=== PATIENT | male | born 1965 ===

== ENCOUNTER 2017-01-29 14:34 | Observation (INO) | payer OTHER ==
[2017-01-29] VITALS (8 sets, daily range): BP systolic 96–113; BP diastolic 65–81
[~2017-01-29 14:34] MED LIST: CITALOPRAM HYDR40 MG PO; DICLOFENAC SODI50 MG PO; GABAPENTIN300 MG PO; MS CONTIN15 MG PO; SIMVASTATIN40 MG PO
--- NOTE | 2017-01-29 16:57 | ED CLINICAL REPORT ---
Clinical Report - Physicians/Mid Levels [facility] [address] [place] [address] 01/29/2017 14:35 Patient: ANGELICA TATE Arrived- By private vehicle. Historian- patient. HISTORY OF PRESENT ILLNESS Chief Complaint: ABDOMINAL PAIN. At its maximum, severity described as moderate. When seen in the E.D., severity described as moderate. Modifying factors- worsened by movement. Not relieved by anything. It is described as sharp and migrating. No radiation. It is described as located in the right lower quadrant. This started past few days and is still present and worsening. It was gradual in onset and has been constant but is not gone now. The patient has had nausea. No loss of appetite or vomiting. He has had diarrhea (mild. described as nbnb). No additional abdominal pain. No recent travel. Similar symptoms previously: None. Recent medical care: Not recently seen/assessed. REVIEW OF SYSTEMS No constipation, black stools, hematemesis, bloody stools or fever. No chest pain, difficulty breathing or skin rash. reports no testicular pain, swelling, or penile discharge. All systems otherwise negative, except as recorded above. PAST HISTORY See nurses notes. Medications: Morphine Sulfate ER Beads Oral (Capsule Extended Release 24 Hour 30 mg) 1 capsule, 2xdat. OxyCODONE HCl Oral (Tablet 5 mg) 1 tablet, 2x a day. Baclofen 10mg, 3x a day. Citalopram Hydrobromide Oral (Tablet 40 mg) 1 tablet, 1xday. Morphine Sulfate ER Beads Oral. Gabapentin Oral 900mg, 3x a day. Allergies: Lescol. SOCIAL HISTORY Smoker- current status unknown. Alcohol use. No drug use. [place] recent travel[place] AD[place]AL NOTES The nursing notes have been reviewed. PHYSICAL EXAM Vital Signs: 01/29/2017 14:43 BP: 127/79. HR: 74. RR: 18. O2 saturation: 92%. Temp: 98.1 F. Pain level now: 5/10. Blood pressure normal. Oxygen saturation normal. Appearance: Alert. Oriented X3. No acute distress. Eyes: Pupils equal, round and reactive to light. Eyes normal inspection. CVS: Normal heart rate and rhythm. Heart sounds normal. Pulses normal. Respiratory: No respiratory distress. Breath sounds normal. Chest nontender. Abdomen: Soft. (tenderness at Mcburney's. Negative Jaylan's. No rebound or guarding.). : (declined by patient). Skin: Skin warm and dry. Normal skin color. No rash. Normal skin turgor. Extremities: Extremities exhibit normal ROM. No lower extremity edema. LABS, X-RAYS, AND EKG Abdominal CT: There is evidence of appendicitis. No mass. No free fluid. No bony lesion. no free air. uncomplicated acute appendicitis. Study type: abdomen and pelvis. Abdominal CT performed with IV contrast. The study was independently viewed by me, interpreted by the radiologist and discussed with the radiologist. Laboratory Tests: UA-Culture if indicated: (CHANDLER: 01/29/2017 15:20) ( [facility] 01/29/2017 16:30) IP Test Result Flag Units (Reference) URINE COLOR YELLOW URINE APPEARANCE CLEAR URINE GLUCOSE NEGATIVE (NEGATIVE) URINE BILIRUBIN NEGATIVE (NEGATIVE) URINE KETONE NEGATIVE (NEGATIVE) URINE SPECIFIC GRAVITY >= 1.030 (1.010-1.030) URINE PH 5.5 (5.0-8.0) URINE PROTEIN NEGATIVE (NEGATIVE) URINE UROBILINOGEN 0.2 EU/dL (0.2-1.0) URINE NITRITE NEGATIVE (NEGATIVE) URINE BLOOD NEGATIVE (NEGATIVE) URINE LEUK ESTERASE NEGATIVE (NEGATIVE) CBC w Diff: (CHANDLER: 01/29/2017 15:50) ( [facility] 01/29/2017 16:27) Final results Test Result Flag Units (Reference) WHITE BLOOD COUNT 9.6 K/uL (4.5-11.5) RED BLOOD COUNT 4.43 L M/uL (4.50-5.90) HEMOGLOBIN 14.1 gm/dL (13.5-17.5) HEMATOCRIT 41.5 % (41.0-53.0) MEAN CELL VOLUME 94 fL (80-100) MEAN CORPUSCULAR HGB 32 pg (26-34) MEAN CORPUSCULAR HGB CONC 34 g/dL (31-37) RED CELL DISTRIBUTION WIDTH 13.7 % (11.6-14.8) PLATELET COUNT 210 K/uL (150-400) NEUTROPHIL % 54.7 % (50-75) LYMPH % 35.4 % (25-40) MONO % 7.4 % (3-14) EOSINOPHIL % 2.1 % (0-4) BASOPHIL % 0.4 % (0-2) PT with INR: (CHANDLER: 01/29/2017 15:50) ( [facility] 01/29/2017 16:29) Final results Test Result Flag Units (Reference) INR 0.8 (0.8-1.2) Low Intensity Therapy: INR 1.5-2.0 PT range 18.5-23.1Mod.Intensity Therapy: INR 2.0-3.0 PT range 23.1-31.5High Intensity Therapy: INR 2.5-3.5 PT range 27.4-35.5High Intensity Therapy 2: INR 3.0-4.0 PT range 31.5-39.3 CMP: (CHANDLER: 01/29/2017 15:50) ( [facility] 01/29/2017 16:20) Final results Test Result Flag Units (Reference) GLUCOSE 100 mg/dL (70-110) BUN 13 mg/dL (7-18) CREATININE 1.1 mg/dL (0.6-1.3) Estimated GFR >60 mL/min Estimated GFR- >60 mL/min Note: Persistent reduction over 3 months in eGFR<60 mL/min/1.73 m2 defines CKD. Patients with eGFR values>=60 mL/min/1.73 m2 may also have CKD if evidence ofpersistent proteinuria. Additional information may be foundat www.kidney.org. SODIUM 140 mmol/L (136-145) POTASSIUM 4.1 mmol/L (3.5-5.1) CHLORIDE 101 mmol/L (98-107) CARBON DIOXIDE 31 mmol/L (21-32) CALCIUM 8.9 mg/dL (8.5-10.1) TOTAL PROTEIN 7.8 g/dL (6.4-8.2) ALBUMIN 3.9 g/dL (3.3-5.0) BILIRUBIN, TOTAL 0.3 mg/dL (0.0-1.0) ALKALINE PHOSPHATASE 76 U/L (46-116) AST (SGOT) 14 L U/L (15-37) ALT (SGPT) 23 U/L (12-78) LIPASE 106 U/L (73-393) . PROGRESS AND PROCEDURES Critical care performed (35 minutes). Time is exclusive of separately billable procedures. Time includes: direct patient care, patient reassessment, coordination of patient care, review of patient's medical records, medical consultation and documentation of patient care. Consult obtained from surgery. dr. Hdez. Case discussed. Disposition: Discharged. Condition: good. CLINICAL IMPRESSION acute appendicitis liver cyst, incidental finding. (Electronically signed by Clifton Heller Dr. 01/30/2017 21:35)
--- NOTE | 2017-01-29 16:57 | ED CLINICAL REPORT ---
Clinical Report - Physicians/Mid Levels [facility] [address] [place] [address] 01/29/2017 14:35 Patient: ANGELICA TATE Arrived- By private vehicle. Historian- patient. HISTORY OF PRESENT ILLNESS Chief Complaint: ABDOMINAL PAIN. At its maximum, severity described as moderate. When seen in the E.D., severity described as moderate. Modifying factors- worsened by movement. Not relieved by anything. It is described as sharp and migrating. No radiation. It is described as located in the right lower quadrant. This started past few days and is still present and worsening. It was gradual in onset and has been constant but is not gone now. The patient has had nausea. No loss of appetite or vomiting. He has had diarrhea (mild. described as nbnb). No additional abdominal pain. No recent travel. Similar symptoms previously: None. Recent medical care: Not recently seen/assessed. REVIEW OF SYSTEMS No constipation, black stools, hematemesis, bloody stools or fever. No chest pain, difficulty breathing or skin rash. reports no testicular pain, swelling, or penile discharge. All systems otherwise negative, except as recorded above. PAST HISTORY See nurses notes. Medications: Morphine Sulfate ER Beads Oral (Capsule Extended Release 24 Hour 30 mg) 1 capsule, 2xdat. OxyCODONE HCl Oral (Tablet 5 mg) 1 tablet, 2x a day. Baclofen 10mg, 3x a day. Citalopram Hydrobromide Oral (Tablet 40 mg) 1 tablet, 1xday. Morphine Sulfate ER Beads Oral. Gabapentin Oral 900mg, 3x a day. Allergies: Lescol. SOCIAL HISTORY Smoker- current status unknown. Alcohol use. No drug use. No recent travel. Residence: moving between [place] and [place]. ADDITIONAL NOTES The nursing notes have been reviewed. PHYSICAL EXAM Vital Signs: 01/29/2017 14:43 BP: 127/79. HR: 74. RR: 18. O2 saturation: 92%. Temp: 98.1 F. Pain level now: 5/10. Blood pressure normal. Oxygen saturation normal. Appearance: Alert. Oriented X3. No acute distress. Eyes: Pupils equal, round and reactive to light. Eyes normal inspection. CVS: Normal heart rate and rhythm. Heart sounds normal. Pulses normal. Respiratory: No respiratory distress. Breath sounds normal. Chest nontender. Abdomen: Soft. (tenderness at Mcburney's. Negative Jaylan's. No rebound or guarding.). : (declined by patient). Skin: Skin warm and dry. Normal skin color. No rash. Normal skin turgor. Extremities: Extremities exhibit normal ROM. No lower extremity edema. LABS, X-RAYS, AND EKG Abdominal CT: There is evidence of appendicitis. No mass. No free fluid. No bony lesion. no free air. uncomplicated acute appendicitis. Study type: abdomen and pelvis. Abdominal CT performed with IV contrast. The study was independently viewed by me, interpreted by the radiologist and discussed with the radiologist. Laboratory Tests: UA-Culture if indicated: (CHANDLER: 01/29/2017 15:20) ( [facility] 01/29/2017 16:30) IP Test Result Flag Units (Reference) URINE COLOR YELLOW URINE APPEARANCE CLEAR URINE GLUCOSE NEGATIVE (NEGATIVE) URINE BILIRUBIN NEGATIVE (NEGATIVE) URINE KETONE NEGATIVE (NEGATIVE) URINE SPECIFIC GRAVITY >= 1.030 (1.010-1.030) URINE PH 5.5 (5.0-8.0) URINE PROTEIN NEGATIVE (NEGATIVE) URINE UROBILINOGEN 0.2 EU/dL (0.2-1.0) URINE NITRITE NEGATIVE (NEGATIVE) URINE BLOOD NEGATIVE (NEGATIVE) URINE LEUK ESTERASE NEGATIVE (NEGATIVE) CBC w Diff: (CHANDLER: 01/29/2017 15:50) ( [facility] 01/29/2017 16:27) Final results Test Result Flag Units (Reference) WHITE BLOOD COUNT 9.6 K/uL (4.5-11.5) RED BLOOD COUNT 4.43 L M/uL (4.50-5.90) HEMOGLOBIN 14.1 gm/dL (13.5-17.5) HEMATOCRIT 41.5 % (41.0-53.0) MEAN CELL VOLUME 94 fL (80-100) MEAN CORPUSCULAR HGB 32 pg (26-34) MEAN CORPUSCULAR HGB CONC 34 g/dL (31-37) RED CELL DISTRIBUTION WIDTH 13.7 % (11.6-14.8) PLATELET COUNT 210 K/uL (150-400) NEUTROPHIL % 54.7 % (50-75) LYMPH % 35.4 % (25-40) MONO % 7.4 % (3-14) EOSINOPHIL % 2.1 % (0-4) BASOPHIL % 0.4 % (0-2) PT with INR: (CHANDLER: 01/29/2017 15:50) ( [facility] 01/29/2017 16:29) Final results Test Result Flag Units (Reference) INR 0.8 (0.8-1.2) Low Intensity Therapy: INR 1.5-2.0 PT range 18.5-23.1Mod.Intensity Therapy: INR 2.0-3.0 PT range 23.1-31.5High Intensity Therapy: INR 2.5-3.5 PT range 27.4-35.5High Intensity Therapy 2: INR 3.0-4.0 PT range 31.5-39.3 CMP: (CHANDLER: 01/29/2017 15:50) ( [facility] 01/29/2017 16:20) Final results Test Result Flag Units (Reference) GLUCOSE 100 mg/dL (70-110) BUN 13 mg/dL (7-18) CREATININE 1.1 mg/dL (0.6-1.3) Estimated GFR >60 mL/min Estimated GFR- >60 mL/min Note: Persistent reduction over 3 months in eGFR<60 mL/min/1.73 m2 defines CKD. Patients with eGFR values>=60 mL/min/1.73 m2 may also have CKD if evidence ofpersistent proteinuria. Additional information may be foundat [email or web address].org. SODIUM 140 mmol/L (136-145) POTASSIUM 4.1 mmol/L (3.5-5.1) CHLORIDE 101 mmol/L (98-107) CARBON DIOXIDE 31 mmol/L (21-32) CALCIUM 8.9 mg/dL (8.5-10.1) TOTAL PROTEIN 7.8 g/dL (6.4-8.2) ALBUMIN 3.9 g/dL (3.3-5.0) BILIRUBIN, TOTAL 0.3 mg/dL (0.0-1.0) ALKALINE PHOSPHATASE 76 U/L (46-116) AST (SGOT) 14 L U/L (15-37) ALT (SGPT) 23 U/L (12-78) LIPASE 106 U/L (73-393) . PROGRESS AND PROCEDURES Critical care performed (35 minutes). Time is exclusive of separately billable procedures. Time includes: direct patient care, patient reassessment, coordination of patient care, review of patient's medical records, medical consultation and documentation of patient care. Consult obtained from surgery. dr. Hdez. Case discussed. Disposition: Discharged. Condition: good. CLINICAL IMPRESSION acute appendicitis liver cyst, incidental finding. (Electronically signed by Clifton Heller Dr. 01/30/2017 21:35)
--- NOTE | 2017-01-29 16:57 | ED ORDER SUMMARY ---
..... Patient: ANGELICA TATE OrderSheet [facility] VisitID: [id number] [address] [place] [address] 51y, M Registration Date/Time: 01/29/2017 ORDER SHEET Weight: 79.3 kg (stated) Allergies: Lescol GENERAL ORDERS: CT Abd/Pel w Cont (No) (N/A) Urgent (15:38 01/29/2017 Antoni Ramirez) (Ack 15:41 Rose) (16:58 GALILEOoerner) CBC w Diff Urgent (15:38 01/29/2017 Antoni Ramirez) (Ack 15:41 Rose) (15:54 JSanders R.N.) CMP Urgent (15:38 01/29/2017 Antoni Ramirez) (Ack 15:41 Rose) (15:54 JSanders R.N.) UA-Culture if indicated Urgent (15:38 01/29/2017 Antoni Ramirez) (Ack 15:41 Rose) (15:54 JSanders R.N.) PT with INR Urgent (15:38 01/29/2017 Antoni Ramirez) (Ack 15:41 Rose) (15:54 JSanders R.N.) Lipase Urgent (15:38 01/29/2017 Antoni Ramirez) (Ack 15:41 Rose) (15:54 ELVIRAanders R.N.) Pulse oximeter (15:38 01/29/2017 Antoni Ramirez) (15:54 JSanders R.N.) MEDICATION ORDERS: IV FLUIDS: IV NS : initial bolus 1000 mL (1000 mL/hr), then none - for X1 (NOW) (15:37 01/29/2017 Antoni Ramirez) (15:55 Bhavnas R.N.) Morphine IV 4 mg (once now. may repeat every hour as needed for total of 3 doses) (15:37 01/29/2017 Antoni Ramirez) (16:14 Rip R.N.) Zofran IV 4 mg (NOW) (15:01/29/2017 Antoni Ramirez) (16:14 DBpenny R.NSo) IV Lactated Ringers : initial bolus none -, then 150 mL/hr (NOW) (17:36 01/29/2017 Antoni Ramirez) (17:43 Gisele Jimenez.NSo) ORDER SHEET NOTES: [Electronically signed by Elyssa Melgoza R.N. (18:24 01/29/2017)] [Electronically signed by Elyssa Melgoza R.N. (18:25 01/29/2017)] [Electronically signed by Clifton Heller Dr. (21:35 01/30/2017)] [Electronically locked/signed by Elyssa Melgoza R.N. (18:24 01/29/2017)]
--- NOTE | 2017-01-29 16:57 | ED NURSING NOTES ---
Clinical Report - Nurses [facility] [address] [place] [address] 01/29/2017 14:35 Patient: ANGELICA TATE TRIAGE Triage time 14:43 Jan 29 2017. Acuity: LEVEL 3. Chief Complaint: ABDOMINAL PAIN and (Mostly pain on right side of abd, started two days, been staying constant, mostly with deep breathing, twisting, stepping wrong). 14:51 01/29/17. SEPSIS SCREEN: Sepsis Screen. Negative (no infection suspected/documented). CHELA COMA SCORE: Chela Coma Scale: 15- eyes open spontaneously (4); best verbal response- oriented x 4 (5); best motor response- obeys commands (6). --14:51 Elyssa Melgoza R.N. 14:43 01/29/17. BP: 127/79 (regular adult cuff) taken on the left arm, while lying. HR: 74. RR: 18 (regular). O2 saturation: 92% on room air. Temp: 98.1 F (oral). Pain level now: 5/10. --14:51 Elyssa Melgoza R.N. 14:59 01/29/17. --14:59 Elyssa Melgoza R.N. Triage time 17:21 Jan 29 2017. --18:24 Elyssa Melgoza R.N. Weight: 79.3 kg stated. Height/Length: 69 inches Per Patient. BMI: 25.8. --14:44 Elyssa Melgoza R.N. Medications Gabapentin Oral 900mg, 3x a day. --14:56 Elyssa Melgoza R.N. Citalopram Hydrobromide Oral (Tablet 40 mg) 1 tablet, 1xday. Morphine Sulfate ER Beads Oral. --14:57 Elyssa Melgoza R.N. Baclofen 10mg, 3x a day. --14:57 Elyssa Melgoza R.N. OxyCODONE HCl Oral (Tablet 5 mg) 1 tablet, 2x a day. --14:58 Elyssa Melgoza R.N. Morphine Sulfate ER Beads Oral (Capsule Extended Release 24 Hour 30 mg) 1 capsule, 2xdat. --14:59 Elyssa Melgoza R.N. Allergies Lescol. --14:46 Elyssa Melgoza R.N. History Arrived by private vehicle. Historian: patient. Accompanied by family. ( [place] Onset. (2 days ago). He has had moderate, sharp, dull abdominal pain. The pain is described as located in the RLQ. Last oral intake by patient was breakfast. 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 PAST MEDICAL HX: Immunizations: up-to-date. SOCIAL HX: Heavy tobacco smoker (cigarette)- 1-2 packs per day. Regular alcohol use; consumes beer. Patient smells of ETOH in the emergency department. No infectious disease exposure. No known contact with a sick individual. ABUSE ASSESSMENT: No report of abuse. --14:51 Elyssa Melgoza R.N. PROBLEMS: Hypercholesterolemia. Arthritis. Back Pain. --14:47 Elyssa Melgoza R.N. ADDITIONAL SURGERIES: Back Surgery. Spinal stimulator. --14:47 Elyssa Melgoza R.N. Interventions ID band on patient. To treatment room. --14:51 Elyssa Melgoza R.N. PHYSICAL ASSESSMENT 14:52 01/29/17. Ambulatory to room. GENERAL / NEURO / PSYCH: Oriented X 4. Appears in pain. HEENT: Mucous membranes are pink. RESPIRATORY: Breath sounds within normal limits. CVS: Capillary refill less than 2 seconds. GI / : Abdomen soft. Rebound tenderness in the right lower quadrant. Guarding present. No nausea noted. No emesis noted. Stool color normal. SKIN: Skin is warm. --14:52 Elyssa Melgoza R.N. 14:52 01/29/17. Patient gowned. --14:52 Elyssa Melgoza R.N. NURSING PROGRESS NOTES 14:52 01/29/17. The plan of care for this patient has been created. Monitoring of patient in place. Patient gowned. Head of bed elevated. Reassurance given. Two patient identifiers checked. Call light placed in reach. Side rails up x 1. Bed placed in lowest position. Brakes of bed on. Patient ready for evaluation- chart flagged and ED physician notified. --14:52 Elyssa Melgoza R.N. 15:55 01/29/2017 Site #1 started via IV in the left antecubital space with an 20g angiocath, with aseptic technique and good blood return; one attempt. Blood drawn: rainbow set. Labeled in the presence of the patient and sent to the lab. Saline lock flushed with 10 mL saline. --15:55 Elyssa Melgoza R.N. 15:55 01/29/2017 Started bag #1 1000 mL IV Fluids IV NS (Saline); at 1000 mL/hr over 1 hour(s) via site #1 via dial-a-flow. Allergies verified and confirmed 5 rights. IV patency established. IV site checked: no pain, redness, or swelling. IV flushed thoroughly pre- and post-medication administration. --15:55 Elyssa Melgoza R.N. 16:14 01/29/2017 Morphine IVP 4 mg given over 2 minute(s) via site #1. Allergies verified, confirmed 5 rights and sedative warning given to the patient. IV patency established. IV site checked: no pain, redness, or swelling. IV flushed thoroughly pre- and post-medication administration. IVP given by RN. --16:14 Hung Wasserman R.N. 16:14 01/29/2017 Zofran (Ondansetron HCl) IVP 4 mg given over 2 minute(s) via site #1. Allergies verified and confirmed 5 rights. IV patency established. IV site checked: no pain, redness, or swelling. IV flushed thoroughly pre- and post-medication administration. IVP given by RN. --16:14 Hung Wasserman R.N. 17:30 01/29/2017 IV Fluids IV NS Discontinued: bag #1 infused. Total amount infused: 1000 mL. IV patency established. IV site checked: no pain, redness, or swelling. IV flushed thoroughly. --17:42 Carlita Mart R.N. 17:43 01/29/2017 Started bag #1 1000 mL IV Fluids IV LACTATED RINGERS; at 150 mL/hr via site #1 via IV pump. Allergies verified and confirmed 5 rights. --17:43 Carlita Mart R.N. 18:09 01/29/2017 IV Fluids IV LACTATED RINGERS Continued: upon transfer at the rate of 150 mL/hr. 600 mL remaining bag #2 (Patient continues on LR at 150ml/hr on transfer to OR). --18:24 Elyssa Melgoza R.N. DISPOSITION / DISCHARGE 17:48 01/29/2017 Zofran IVP Response: no adverse reaction pain is improving. Symptoms have improved the patient feels better. --18:13 Elyssa Melgoza R.N. 17:48 01/29/2017 Morphine IVP Response: no adverse reaction pain is improving. Symptoms have improved the patient feels better. --18:13 Elyssa Melgoza R.N. Departure time: 18:10 Jan 29 2017. Condition at departure: unchanged. Admitted via Surgery (18:14 Jan 29 2017). Transported via stretcher by nurse with IV. --18:19 Elyssa Melgoza R.N. 16:30 01/29/17. BP: 128/72 (regular adult cuff) taken on the left arm, while lying. HR: 68. RR: 18 (regular). O2 saturation: 94% on room air. Temp: 98.4 F (oral). Pain level now: 12/06. --18:19 Elyssa Melgoza R.N. 18:19 01/29/17. BP: 132/68 (regular adult cuff) taken on the left arm, while lying. HR: 70. RR: 18 (regular). O2 saturation: 96% on room air. Temp: 97.6 F (oral). Pain level now: 01/06. --18:20 Elyssa Melgoza R.N. ( Last recorded vitals were done at 1530). --18:21 Elyssa Melgoza R.N. Locked/Released at 01/29/2017 18:25 by Elyssa Melgoza R.N.
--- NOTE | 2017-01-29 16:57 | ED ORDER SUMMARY ---
..... Patient: ANGELICA TATE OrderSheet [facility] VisitID: [id number] [address] [place] [address] 51y, M Registration Date/Time: 01/29/2017 ORDER SHEET Weight: 79.3 kg (stated) Allergies: Lescol GENERAL ORDERS: CT Abd/Pel w Cont (No) (N/A) Urgent (15:38 01/29/2017 Antoni Ramirez) (Ack 15:41 Rose) (16:58 GALILEOoerner) CBC w Diff Urgent (15:38 01/29/2017 Antoni Ramirez) (Ack 15:41 Rose) (15:54 JSanders R.N.) CMP Urgent (15:38 01/29/2017 Antoni Ramirez) (Ack 15:41 Rose) (15:54 JSanders R.N.) UA-Culture if indicated Urgent (15:38 01/29/2017 Antoni Ramirez) (Ack 15:41 Rose) (15:54 JSanders R.N.) PT with INR Urgent (15:38 01/29/2017 Antoni Ramirez) (Ack 15:41 Rose) (15:54 JSanders R.N.) Lipase Urgent (15:38 01/29/2017 Antoni Ramirez) (Ack 15:41 Rose) (15:54 ELVIRAanders R.N.) Pulse oximeter (15:38 01/29/2017 Antoni Ramirez) (15:54 JSanders R.N.) MEDICATION ORDERS: IV FLUIDS: IV NS : initial bolus 1000 mL (1000 mL/hr), then none - for X1 (NOW) (15:37 01/29/2017 Antoni Ramirez) (15:55 Bhavnas R.N.) Morphine IV 4 mg (once now. may repeat every hour as needed for total of 3 doses) (15:37 01/29/2017 Antoni Ramirez) (16:14 Rip R.N.) Zofran IV 4 mg (NOW) (15:01/29/2017 Antoni Ramirez) (16:14 DBpenny R.NSo) IV Lactated Ringers : initial bolus none -, then 150 mL/hr (NOW) (17:36 01/29/2017 Antoni Ramirez) (17:43 Gisele Jimenez.NSo) ORDER SHEET NOTES: [Electronically signed by Elyssa Melgoza R.N. (18:24 01/29/2017)] [Electronically signed by Elyssa Melgoza R.N. (18:25 01/29/2017)] [Electronically signed by Clifton Heller Dr. (21:35 01/30/2017)] [Electronically locked/signed by Elyssa Melgoza R.N. (18:24 01/29/2017)]
--- NOTE | 2017-01-29 17:02 | DIAGNOSTIC IMAGING REPORT ---
PROCEDURE: ABDOMEN/PELVIS WITH CONTRAST CLINICAL INDICATION: RLQ ABDO PAIN TECHNIQUE: 100 ml of Isovue 300 were injected intravenously and axial images were obtained of the abdomen and pelvis with sagittal and coronal reformations. COMPARISON: None. FINDINGS: ABDOMEN: Clear lung bases. Normal sized heart. Very small hiatal hernia. There is a bilobed hypodensity centrally within the right hepatic lobe parenchyma measuring about 2.4 x 1.4 by 1.3 cm which demonstrates wispy internal heterogeneous hyperintensity, possibly calcification versus enhancement. The liver is otherwise normal. The gallbladder, adrenal glands, kidneys, pancreas and spleen are normal. The abdominal aorta is normal in its course and caliber. Mild to moderate atherosclerosis. There are no suspicious calcifications, retroperitoneal adenopathy or masses. The stomach, upper bowel loops, and mesentery are normal. Intact anterior abdominal wall. Mild right lower quadrant mesenteric inflammation. The appendix is enlarged, the wall is thickened, and there is moderate periappendiceal inflammation. The appendix measures 12 mm. No extraluminal gas , adjacent fluid, or focal fluid collection. No free pelvic fluid. PELVIS: The pelvic small bowel loops are normal. Mild sigmoid diverticulosis. Normal amount of stool in the colon and rectum. Small left bladder diverticulum adjacent to the UVJ. The prostate gland, seminal vesicles, urinary bladder, and pelvic vessels are otherwise normal. No adenopathy, free fluid, or pelvic mass. L5-S1 fusion with transpedicular screws and disc spacer is present. There is an epidural nerve stimulator in place with the lead entering the thecal sac at the T11-12 level. IMPRESSION: 1. Acute appendicitis. No complication. 2. 2.4 cm bilobed liver lesion is nonspecific characteristics. Further evaluation with three phase liver CT is recommended. 3. Sigmoid diverticulosis. 4. Prior surgery at L5-S1 and intrathecal nerve stimulator in place. 5. Discussed with Dr. Heller in the emergency room. All CT scans at this facility use dose modulation, iterative reconstruction, and/or weight-based dosing when appropriate to reduce radiation dose to as low as reasonably achievable.
[2017-01-29] MEDS ORDERED: OXAYDO5 MG PO (19:15)
--- NOTE | 2017-01-29 19:16 | Provider's Discharge Care Plan ---
Problem, Goal, Plan Problem List 1. Acute appendicitis 2. Liver cyst
--- NOTE | 2017-01-29 19:16 | Provider's Discharge Care Plan ---
Problem, Goal, Plan Problem List 1. Acute appendicitis 2. Liver cyst
[2017-01-30 01:15] VITALS: BP 107/78
[2017-01-30 02:17] VITALS: BP 106/72
--- NOTE | 2017-01-30 02:20 | CONSULTATION REPORT ---
DATE OF CONSULTATION: 01/29/2017 CHIEF COMPLAINT: 1. Abdominal pain HISTORY OF PRESENT ILLNESS: The patient is a 51-year-old man presenting with a 3 -day history of abdominal pain. This pain started with nonlocalized abdominal pain. Over the next day or so, it became increasingly localized and one day before it localized to the right lower quadrant, associated with movement and pain with deep breathing. The patient reported nausea. He had some loose stools initially, but none since. He denies vomiting, hematochezia, or hematemesis. MEDICAL/SURGICAL HISTORY: Past medical history is remarkable for hypercholesterolemia. Past surgical history, he had a back fusion and spinal implant. He has chronic pain problems. MEDICATIONS: 1. Gabapentin 900 mg t.i.d. 2. Morphine ER 30 mg p.o. b.i.d. 3. Oxycodone 5 mg p.o. b.i.d. 4. Citalopram 40 mg p.o. daily. 5. Baclofen 10 mg p.o. t.i.d. as needed. 6. Diclofenac 50 mg b.i.d. ALLERGIES: 1. LESCOL. SOCIAL HISTORY: The patient is . He lives with a significant other in [place] and has a plane flight tomorrow to return to [place]. 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 Smoking: The patient smokes 1-1/2 pack per day, ethanol about 1-2 drinks per day. FAMILY HISTORY: REVIEW OF SYSTEMS: A multipoint review of systems obtained and was pertinent for diarrhea, but was negative for all other 12 entities, including head and neck complaints, sinus or ear problems, visual changes, neck difficulties. He does have chronic back pain. He denies other gastrointestinal disturbance, unexpected weight loss. There has been no mental status changes, sensorium changes, strokes, vascular disease, chest pain, shortness of breath, or palpitations. PHYSICAL EXAMINATION: VITAL SIGNS: Initial vital signs: Blood pressure 127/79, heart rate 74, respirations 18, O2 saturation 92% on room air, temperature 98.1. GENERAL: The patient is alert and cooperative. His mental status is normal. Sensorium is normal. He was quite communicative, was not sedated at all. He reported abdominal pain in the right lower quadrant. He is oriented to time and place. HEENT: Her ears and nose demonstrate no gross external lesions. Eyes are equal. He is anicteric. NECK: Without palpable masses or thyromegaly. CHEST: Clear without wheeze or rales. HEART: Regular, without murmur or gallop. ABDOMEN: Reveals localized tenderness and involuntary guarding at McBurney's point. Bowel sounds are active. He is nondistended. There was no hepatosplenomegaly. EXTREMITIES: Symmetric. He appeared to move on the gurney without restriction. LAB/IMAGING: His white count was 9.6, hemoglobin and hematocrit are 14 and 41.5. Electrolytes are normal. AST is slightly low. Lipase and bilirubin are normal. His urinalysis was negative. INR 0.8. A CT scan demonstrated acute appendicitis. He had a 2.4 cm bilobed liver lesion, which is nonspecific. He had sigmoid diverticulosis. He had previous surgery at the L5-S1 area with a nerve stimulator. IMPRESSION: 1. Acute appendicitis PLAN: I recommend the patient undergo a laparoscopic appendectomy. I talked to the patient about the alternatives, benefits and risks including alternatives of antibiotic therapy and open surgery. I talked about risks of surgery including infection, bleeding, scars, pain, damage to local structures and alternative findings and others. The patient would like to proceed with surgery as described to him.
--- NOTE | 2017-01-30 02:23 | OPERATIVE REPORT ---
DATE OF SURGERY: 01/29/2017 SURGEON: Satinder Quinteros MD PREOPERATIVE DIAGNOSIS: 1. Acute appendicitis POSTOPERATIVE DIAGNOSIS: 1. Acute suppurative appendicitis PROCEDURE PERFORMED: 1. Laparoscopic appendectomy ANESTHESIA: General. INDICATIONS: The patient is a 51-year-old man presenting with a 3-day history of worsening abdominal pain and a positive CT scan. SURGICAL TECHNIQUE: The patient was taken to the operating room, where a general anesthetic was administered and the patient prepped and draped in the usual sterile fashion. Marcaine 0.5% was used at each incision site and infused in the abdomen at the conclusion. An infraumbilical incision was made and a Veress needle used to insufflate the abdominal cavity. A 10 mm port was passed and a 5 and a 10 mm port were also placed in the lower midline. The appendix was visualized and found to be significantly erythematous and indurated. The mesoappendix was taken down using the Thunderbeat device back to the base of the appendix where 2 clips were applied. Another clip was applied and the specimen side. The appendix was partially transected. Bipolar current was applied to the exposed mucosa and transection was completed and the appendix extracted through the umbilical trocar. There was no significant purulence left in the abdomen. A little local was irrigated and some was aspirated back. Gas was evacuated and the trocar sites closed with interrupted subcuticular 4-0 Vicryl suture. Steri-Strips and dressings were applied and the patient left in good condition. No intraoperative complications were encountered.
--- NOTE | 2017-01-30 21:35 | ED MAR SUMMARY ---
..... Medication Administration Record [facility] [address] [place] [address] Patient: ANGELICA TATE Visit ID: [id number] 51y, M Weight: 79.3 kg Height/Length: 69 in BMI: 25.8 ALLERGIES: Lescol Start 15:55 01/29/2017 Elyssa Melgoza R.N., Stop 17:30 01/29/2017 Carlita Mart R.N. Medication Administered: IV NS (SALINE), Dose: IV Fluids over 1 hour(s), Rate: 1000 mL/hr, Dispensed: 1000 mL bag, Site: #1 left AC. Medication Ordered: IV NS : initial bolus 1000 mL (1000 mL/hr), then none - for X1 (NOW). Given 16:14 01/29/2017 Hung Wasserman R.N. Medication Administered: MORPHINE [IVP], Dose: 4 mg IVP over 2 minute(s), Site: #1 left AC. Medication Ordered: Morphine IV 4 mg (once now. may repeat every hour as needed for total of 3 doses). Given 16:14 01/29/2017 Hung Wasserman R.N. Medication Administered: ZOFRAN [IVP] (ONDANSETRON HCL), Dose: 4 mg IVP over 2 minute(s), Site: #1 left AC. Medication Ordered: Zofran IV 4 mg (NOW). Start 17:43 01/29/2017 Carlita Mart R.N., Continued Upon Transfer 18:09 01/29/2017 Elyssa Melgoza R.N. Medication Administered: IV LACTATED RINGERS, Dose: IV Fluids, Rate: 150 mL/hr, Dispensed: 1000 mL bag, Site: #1 left AC. Medication Ordered: IV Lactated Ringers : initial bolus none -, then 150 mL/hr (NOW).
--- NOTE | 2017-01-30 21:35 | ED DISCHARGE INSTRUCTIONS ---
Patient: ANGELICA TATE General Instructions [facility] VisitID: [id number] [address] [place] [address] 51y, M Registration Date/Time: 01/29/2017 acute appendicitis liver cyst, incidental finding. (Electronically signed by Clifton Heller Dr. 01/30/2017 21:35)
--- NOTE | 2017-01-30 21:35 | ED MED RECONCILIATION SUMMARY ---
Patient: ANGELICA TATE Medication Reconciliation Report [facility] VisitID: [id number] [address] [place] [address] 51y, M Registration Date/Time: 01/29/2017 Weight: 79.3 kg Height/Length: 69 in. BMI: 25.8 ALLERGIES: Lescol The patient's Home Medications are listed below: THE FOLLOWING MEDICATIONS NEED TO BE RECONCILED: Baclofen 10mg, 3x a day Citalopram Hydrobromide Oral (40 mg) 1 tablet, 1xday Gabapentin Oral 900mg, 3x a day Morphine Sulfate ER Beads Oral Morphine Sulfate ER Beads Oral (30 mg) 1 capsule, 2xdat OxyCODONE HCl Oral (5 mg) 1 tablet, 2x a day The source(s) of the original Home Medication information: Not obtained. The following Medications were given to the patient in the Emergency Department: IV NS IV Fluids bolus 0, then 1000 mL/hr, administered: 01/29/2017 3:55:00 PM Morphine [IVP] IVP 4 mg, administered: 01/29/2017 4:14:00 PM Zofran [IVP] IVP 4 mg, administered: 01/29/2017 4:14:00 PM IV LACTATED RINGERS IV Fluids bolus 0, then 150 mL/hr, administered: 01/29/2017 5:43:00 PM The following Medications were prescribed to the patient: None.
--- NOTE | 2017-01-30 21:35 | ED MAR SUMMARY ---
..... Medication Administration Record [facility] [address] [place] [address] Patient: ANGELICA TATE Visit ID: [id number] 51y, M Weight: 79.3 kg Height/Length: 69 in BMI: 25.8 ALLERGIES: Lescol Start 15:55 01/29/2017 Elyssa Melgoza R.N., Stop 17:30 01/29/2017 Carlita Mart R.N. Medication Administered: IV NS (SALINE), Dose: IV Fluids over 1 hour(s), Rate: 1000 mL/hr, Dispensed: 1000 mL bag, Site: #1 left AC. Medication Ordered: IV NS : initial bolus 1000 mL (1000 mL/hr), then none - for X1 (NOW). Given 16:14 01/29/2017 Hung Wasserman R.N. Medication Administered: MORPHINE [IVP], Dose: 4 mg IVP over 2 minute(s), Site: #1 left AC. Medication Ordered: Morphine IV 4 mg (once now. may repeat every hour as needed for total of 3 doses). Given 16:14 01/29/2017 Hung Wasserman R.N. Medication Administered: ZOFRAN [IVP] (ONDANSETRON HCL), Dose: 4 mg IVP over 2 minute(s), Site: #1 left AC. Medication Ordered: Zofran IV 4 mg (NOW). Start 17:43 01/29/2017 Carlita Mart R.N., Continued Upon Transfer 18:09 01/29/2017 Elyssa Melgoza R.N. Medication Administered: IV LACTATED RINGERS, Dose: IV Fluids, Rate: 150 mL/hr, Dispensed: 1000 mL bag, Site: #1 left AC. Medication Ordered: IV Lactated Ringers : initial bolus none -, then 150 mL/hr (NOW).
--- NOTE | 2017-01-30 21:35 | ED DISCHARGE INSTRUCTIONS ---
Patient: ANGELICA TATE General Instructions [facility] VisitID: [id number] [address] [place] [address] 51y, M Registration Date/Time: 01/29/2017 acute appendicitis liver cyst, incidental finding. (Electronically signed by Clifton Heller Dr. 01/30/2017 21:35)
--- NOTE | 2017-01-30 21:35 | ED MED RECONCILIATION SUMMARY ---
Patient: ANGELICA TATE Medication Reconciliation Report [facility] VisitID: [id number] [address] [place] [address] 51y, M Registration Date/Time: 01/29/2017 Weight: 79.3 kg Height/Length: 69 in. BMI: 25.8 ALLERGIES: Lescol The patient's Home Medications are listed below: THE FOLLOWING MEDICATIONS NEED TO BE RECONCILED: Baclofen 10mg, 3x a day Citalopram Hydrobromide Oral (40 mg) 1 tablet, 1xday Gabapentin Oral 900mg, 3x a day Morphine Sulfate ER Beads Oral Morphine Sulfate ER Beads Oral (30 mg) 1 capsule, 2xdat OxyCODONE HCl Oral (5 mg) 1 tablet, 2x a day The source(s) of the original Home Medication information: Not obtained. The following Medications were given to the patient in the Emergency Department: IV NS IV Fluids bolus 0, then 1000 mL/hr, administered: 01/29/2017 3:55:00 PM Morphine [IVP] IVP 4 mg, administered: 01/29/2017 4:14:00 PM Zofran [IVP] IVP 4 mg, administered: 01/29/2017 4:14:00 PM IV LACTATED RINGERS IV Fluids bolus 0, then 150 mL/hr, administered: 01/29/2017 5:43:00 PM The following Medications were prescribed to the patient: None.
--- NOTE | 2017-02-03 19:37 | CONSULTATION REPORT ---
DATE OF CONSULTATION: 01/29/2017 ADDENDUM FAMILY HISTORY: The patient did not report a family history of hereditary disorders.
--- NOTE | 2017-02-03 19:37 | CONSULTATION REPORT ---
DATE OF CONSULTATION: 01/29/2017 ADDENDUM FAMILY HISTORY: The patient did not report a family history of hereditary disorders.
== END 2017-01-30 02:40 | disposition home or self-care (01) ==
LOC: ED SRH 14:34 → TRANS SRH 16:51 → ACUTE2 SRH 19:55
PROVIDERS: ADMIT Surgery
PROC: 0DTJ4ZZ Resection of Appendix, Percutaneous Endoscopic Approach (ICD-10-PCS; principal; 2017-01-29 17:45)
DX: K35.80 Unspecified acute appendicitis (principal); K76.89 Other specified diseases of liver; E78.00 Pure hypercholesterolemia, unspecified; F17.210 Nicotine dependence, cigarettes, uncomplicated; Z71.6 Tobacco abuse counseling
CPT/HCPCS: 29229; 29230; 50002; 60001; 70002; 80102; 80248; 82811; 82897; 83587; 83919; 83982; 84038; 90004; 90100; 92235; 94060; 95059